=== PATIENT | female | born 1960 | race Caucasian/White ===

== ENCOUNTER 2023-01-28 07:36 | Day surgery (SDC) | payer OTHER ==
[~2023-01-28] VITALS: Ht 162.6 cm; Wt 61.7 kg
[2023-01-28] MEDS ORDERED: fentaNYL citrate 0.05 MG/ML VIAL ONE (07:58)
[2023-01-28] MEDS ORDERED: diphenhydrAMINE 50 MG/ML VIAL ONE (07:58)
[2023-01-28] MEDS ORDERED: MIDAZOLAM 5 MG/5 ML VIAL ONE (07:59)
[2023-01-28] MEDS ORDERED: MIDAZOLAM 2 MG/2 ML VIAL IVP ONE (08:50)
[2023-01-28] MEDS ORDERED: fentaNYL citrate 0.05 MG/ML VIAL IVP ONE (08:50)
== END 2023-01-28 10:20 | disposition home or self-care (01) ==
LOC: MDS 07:36 → MMU 07:36 → MDS 10:20
PROVIDERS: ATTEND Internal Medicine Gastroenterology
DX: K21.9 Gastro-esophageal reflux disease without esophagitis (principal); K29.50 Unspecified chronic gastritis without bleeding; Z87.11 Personal history of peptic ulcer disease; I10 Essential (primary) hypertension; E11.9 Type 2 diabetes mellitus without complications; E78.5 Hyperlipidemia, unspecified; Z90.49 Acquired absence of other specified parts of digestive tract
CPT/HCPCS: 43239; 88305; 88312; 88313; 88342; J2250; J3010; J1200